=== PATIENT | female | born 1980 | race Hispanic/Latino ===

== ENCOUNTER 2025-01-23 21:15 | Emergency (ER) | payer BC, OTHER ==
[~2025-01-23] VITALS: Ht 152.4 cm; Wt 57.2 kg
[2025-01-23 22:25] LABS: APPEARANCE,URINE CLEAR (CLEAR); GLUCOSE, URINE (UA) NEGATIVE (NEGATIVE); LEUKOCYTE ESTERASE ,URINE NEGATIVE Leu/uL (NEGATIVE); NITRATE,URINE 1+ (NEGATIVE); OCCULT BLOOD,URINE MODERATE (NEGATIVE)
[2025-01-23 22:40] LABS: ADD UA MICROSCOPIC YES
[2025-01-23] MEDS ORDERED: PHEN-776 PO (22:40)
[2025-01-23] MEDS ORDERED: NITR-166 PO (22:40)
--- NOTE | 2025-01-23 22:41 | ERN ---
ED Note History of Present Illness Stated Complaint: C/O LOWER BACK PAIN W/ VOIDING LESS THAN USUAL Chief Complaint: Back Pain-No Injury Time Seen by MD: 21:17 Dictation: 45-year-old female presents to ER complaints of urinary symptoms x2 days. Has noted some blood in urine and has back pain. Patient states she has had UTIs in the past had a similar like today. Allergies: Coded Allergies: No Known Allergies (Unverified Allergy, Unknown, 01/23/25) Home Meds Active Scripts Phenazopyridine HCl (Pyridium) 200 Mg Tablet, 200 MG PO TID for painful urination for 3 Days, #9 TAB 0 Refills Prov:TIFFANIE CRUZ PST MANAGER 01/23/25 Nitrofurantoin Macrocrystal (Macrodantin) 100 Mg Cap, 1 CAP PO BID for 7 Days, #14 CAP 0 Refills Prov:TIFFANIE CRUZ PST MANAGER 01/23/25 Past Medical History Past Medical History: No Pertinent History Surgical History: Appendectomy, Other Surgical History Other: TUBAL LIGATION LMP: Jan 13, 2025 Review of System Dictation CONSTITUTIONAL: NEGATIVE FOR FEVER,CHILLS, AND WEIGHT LOSS EYES: NEGATIVE FOR INJURY, PAIN,REDNESS, AND DISCHARGE ENT: NEGATIVE FOR INJURY,PAIN OR SWELLING CARDIOVASCULAR: NEGATIVE FOR CHEST PAIN, PALPITATIONS, AND EDEMA RESPIRATORY: NEGATIVE FOR SHORTNESS OF BREATH, COUGH, WHEEZING, AND PLEURITIC CHEST PAIN ABDOMEN/GI: NEGATIVE FOR ABDOMINAL PAIN, NAUSEA, VOMITING AND DIARRHEA. BACK: NEGATIVE FOR PAIN OR INJURY : NEGATIVE FOR INJURY, BLEEDING AND DISCHARGE. Positive for frequency and burning and back pain MS/EXTREMITY: NEGATIVE FOR INJURY AND DEFORMITY SKIN: NEGATIVE FOR RASH, AND DISCOLORATION NEURO: NEGATIVE FOR HEADACHE, WEAKNESS, NUMBNESS, TINGLING, AND SEIZURE PSYCH: NEGATIVE FOR SUICIDE IDEATION, HOMICIDAL IDEATION, AND HALLUCINATIONS ALLERGY/IMMUNOLOGY: NEGATIVE FOR HIVES, RASH, AND ALLERGIES ALL SYSTEMS NEGATIVE, EXCEPT NOTED ABOVE. 13 POINT REVIEW OF SYSTEMS ASSESSED AND ALL NEGATIVE EXCEPT FOR ABOVE. Initial Vital Sign VS Vital Signs Date Time Temp Pulse Resp B/P (MAP) Pulse Ox O2 Delivery O2 Flow Rate FiO2 01/23/25 21:17 98.2 87 20 103/74 100 Room Air Physical Exam Dictation General: awake, alert, NAD Head/Face: Normocephalic, atraumatic Eyes: PERRL, EOMI, vision at baseline ENT: oral cavity clear, TMs clear, no signs of infection Neck: Trachea midline, supple, no nuchal rigidity Cardiovascular: RRR, normal no JVD Respiratory: CTAB, no respiratory distress, No rales or wheezes Abdomen: Soft, non-tender, non-distended, normal bowel sounds, no guarding or rebound. Skin: Warm, dry, normal turgor, no rash MS/Extremity: Pulses equal, no cyanosis, neurovascular intact, FROM Neuro: COAx4, GCS 15, strength 5/5, CN 2-12 intact, normal cerebellar exam, normal gait, Psych: Normal behavior, mood, and affect normal Results (Laboratory/Radiology) Laboratory/Radiology Laboratory Tests Test 01/23/25 21:20 Urine Color DARK-YELLOW (YELLOW) Urine Appearance CLEAR (CLEAR) Urine pH 5.5 (5.0-8.0) Urine Specific [place] 1.020 (1.001-1.031) Urine Protein NEGATIVE mg/dL (NEGATIVE) Urine Glucose (UA) NEGATIVE mg/dL (NEGATIVE) Urine Ketones NEGATIVE mg/dL (NEGATIVE) Urine Occult Blood MODERATE (NEGATIVE) H Urine Nitrate 1+ (NEGATIVE) H Urine Bilirubin NEGATIVE mg/dL (NEGATIVE) Urine Urobilinogen 2.0 mg/dL (0.2-1.0) H Urine Leukocyte Esterase NEGATIVE [place]/uL Urine RBC 6-10 /HPF (0-1) H Urine WBC 2-5 /HPF (0-1) H Urine Squamous Epithelial Cells RARE /HPF (0-2) Urine Bacteria None /HPF (None Seen) ED Course ED Course Orders Procedure Category Date Status Time Ketorolac PHA 01/23/25 Complete Tromethamine 30mg/Ml 22:00 Urinalysis Profile LAB 01/23/25 Complete 21:39 Culture Urine MARCELINA 01/23/25 In Process 22:36 Ceftriaxone 1g Vial PHA 01/23/25 Complete (Rocephine 1g Inj) 23:00 Current Medications Medications (Trade) Dose Ordered Sig/Nicole Route PRN Reason Start Time Stop Time Status Last Admin Dose Admin Ceftriaxone Sodium (ROCEphine 1G INJ) 1 gm ONCE ONCE IM 01/23/25 23:00 01/23/25 23:01 DC 01/23/25 23:30 Ketorolac Tromethamine (toRADol) 30 mg ONCE ONCE IM 01/23/25 22:00 01/23/25 22:01 DC 01/23/25 22:31 Vital Signs Date Time Temp Pulse Resp B/P (MAP) Pulse Ox O2 Delivery O2 Flow Rate FiO2 01/23/25 21:17 98.2 87 20 103/74 100 Room Air Medical Decision Making MDM MDM: Differential diagnosis: UTI, pyelonephritis, dysuria, Rationale: Tests considered and ordered secondary to shared decision making include: labs, ECG and radiology Previous outside records reviewed: Old ER visits. Risk of complication and/or morbidity or mortality of patient management: None Medications-Per medication reconciliation Need for hospitalization: Patient does NOT meet criteria for hospitalization. Need for emergency major/minor surgery: No There are no social concerns with this patient. Prescription drug management Prescriptions will include symptomatic care Patient's prior external medical records from other ER visits were reviewed by me as indicated. Prior testing and results from previous visits were reviewed. Prior tests were taken into account with medical decision making and resource utilization, independent historian/historians were used to obtain complete medical history. I independently interpreted the test that were performed, results were reviewed by me and considered findings on radiology if ordered. DX & DISP Disposition: Discharge Departure Impression: Primary Impression: UTI (urinary tract infection) Additional Impression: Flank pain Condition: Stable Scripts Phenazopyridine HCl (Pyridium) 200 Mg Tablet 200 MG PO TID for painful urination for 3 Days, #9 TAB 0 Refills Prov: TIFFANIE CRUZ 01/23/25 Nitrofurantoin Macrocrystal (Macrodantin) 100 Mg Cap 1 CAP PO BID for 7 Days, #14 CAP 0 Refills Prov: TIFFANIE CRUZ 01/23/25 Additional Instructions: Take medications as prescribed for urinary tract infection. FOLLOW-UP WITH YOUR PCP IN 24-72 HOURS AND IN THE EVENT IF SYMPTOMS WORSEN OR AN EMERGENCY OVERNIGHT REPORT TO THE ED IMMEDIATELY Referrals: AMY WOOD (PCP) TIFFANIE CRUZ Jan 23, 2025 22:41
[2025-01-23 22:42] LABS: SQUAMOUS EPITHELIAL CELL,UR RARE /HPF (0-2)
[2025-01-23 23:50] VITALS: BP 118/72; PULSE 84; RESP 16; TEMP 98.2; O2SAT 99
== END 2025-01-23 23:53 | disposition home or self-care (01) ==
LOC: EDH 21:15
DX: N39.0 Urinary tract infection, site not specified (principal); Z90.49 Acquired absence of other specified parts of digestive tract; Z79.899 Other long term (current) drug therapy
CPT/HCPCS: 99284; 87086; 81001; 96372 ×2; 81003; J1885; J0696

== ENCOUNTER → 2025-02-21 | Outpatient (CLI) | payer BC ==
[~2025-02-21] MED LIST: IOHEXOL-350 75 ML VIAL IV ONE; NITR-108 PO; PHEN-776 PO
--- NOTE | 2025-02-22 10:21 | HMCIMG ---
EXAM: CT Abdomen and Pelvis with Intravenous Contrast CLINICAL HISTORY: Abnormal findings on diagnostic imaging of other abdominal regions, includi (Hx) TECHNIQUE: Axial computed tomography images of the abdomen and pelvis with intravenous contrast, including delayed 7 minutes imaging. Dose reduction technique was used including one or more of the following: automated exposure control, adjustment of mA and kV according to patient size, and/or iterative reconstruction. Total exam DLP 728.6. Total CTDI volume 15.3. CONTRAST: With intravenous contrast, including delayed 7 minutes imaging. COMPARISON: None provided. FINDINGS: LUNG BASES: No basilar airspace consolidation or pleural effusion. LIVER: Liver is normal. GALLBLADDER AND BILE DUCTS: Gallbladder is normal. No calcified stone. No ductal dilation. PANCREAS: Pancreas is unremarkable. SPLEEN: Spleen is unremarkable. ADRENAL GLANDS: Right adrenal is normal. Left adrenal is normal. KIDNEYS, URETERS, AND BLADDER: Right kidney is normal. The left kidney is unremarkable. Bilateral lobulations I think both kidneys. The urinary bladder is partly distended at the time of examination. Delayed 7 minutes images demonstrate smooth, symmetric contrast excretion through the bilateral renal pelvicalyceal systems without hydroureteronephrosis. No nephrolithiasis. No ureteral or bladder calculi. STOMACH AND BOWEL: Stomach is unremarkable. The orally administered contrast is passing smoothly across the entire length of the small and large bowel. No obstruction. No wall thickening. No CT evidence of colitis or acute diverticulitis. No anorectal wall thickening. APPENDIX: The appendix is not visualized. PERITONEUM: No free fluid. No free air. LYMPH NODES: No lymphadenopathy. REPRODUCTIVE: There is a complex appearing, septated left adnexal cystic lesion measuring 2.3 x 3.4 x 3.4 cm. No enhancing nodules. No calcification or fat in it. The left ovary is not separately seen. The right adnexa is unremarkable. VASCULATURE: No aortic aneurysm. ABDOMINAL WALL AND SOFT TISSUES: There is a small umbilical hernia containing fat in the defect measuring 0.8 cm in width. There is no ischiorectal fossa fat stranding/collection. BONES: No fracture or suspicious osseous abnormality. IMPRESSION: 1. Complex appearing left adnexal cystic lesion measuring 2.3 x 3.4 x 3.4 cm, likely ovarian in origin. Recommend serum tumor marker levels correlation and follow up on ultrasonography at 6 months interval. /Liza
== END | disposition home or self-care (01) ==
LOC: RAH 09:42
PROVIDERS: ATTEND Internal Medicine Nephrology
DX: K42.9 Umbilical hernia without obstruction or gangrene (principal); K59.00 Constipation, unspecified; K76.89 Other specified diseases of liver; N39.0 Urinary tract infection, site not specified; N32.89 Other specified disorders of bladder
CPT/HCPCS: 74177; Q9967